=== PATIENT | female | born 1930 | race American Indian/Alaskan Native ===

== ENCOUNTER 2017-03-24 20:42 | Emergency (ER) | payer MEDICARE, MEDICAID ==
[2017-03-24 20:51] VITALS: RESP 18; TEMP 97.7; O2SAT 99
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
[2017-03-24 22:12] VITALS: BP 163/96; PULSE 65
== END 2017-03-24 23:10 | disposition home or self-care (01) ==
LOC: H.ER 20:42
DX: F03.90 Unspecified dementia, unspecified severity, without behavioral disturbance, psychotic disturbance, mood disturbance, and anxiety (principal); E11.9 Type 2 diabetes mellitus without complications; I10 Essential (primary) hypertension